=== PATIENT | female | born 1985 | race Caucasian/White ===

== ENCOUNTER 2016-03-24 16:41 | Emergency (ER) | payer SELFPAY ==
--- NOTE | 2016-03-24 17:24 | ED CLINICAL REPORT ---
Clinical Report - Physicians/Mid Levels [facility] [address] [place] [address] 03/24/2016 16:43 Patient: TERRA DIAL Time Seen: 17:05; initial patient contact, initial documentation, patient care assumed. Arrived- By private vehicle. Historian- patient. HISTORY OF PRESENT ILLNESS Chief Complaint: DENTAL PAIN. This started today and is still present. Pain described as severe. No sore throat, mouth sores, nasal discharge or congestion or ear pain. She has had severe toothache involving multiple teeth (right lower molar, left lower molar). She has had swelling of the jaw and face and jaw pain. (teeth issues for years, molars were capped, caps fell out long time ago as a child, never went back to dentist, teeth have been slowly breaking, now wisdom coming thru, and wisdom tooth on bottom L is pushing into the other tooth, gum is swollen and painful, took motrin which helped). Similar symptoms previously: Chronically. Recent medical care: Not recently seen/assessed. REVIEW OF SYSTEMS No fever or difficulty breathing. All systems otherwise negative, except as recorded above. PAST HISTORY Negative. SOCIAL HISTORY Former smoker. Occasional alcohol use. No drug use. No recent travel. Is a local resident. FAMILY HISTORY Negative. ADDITIONAL NOTES The nursing notes have been reviewed with agreement regarding the chief complaint, HPI, ROS, PMH and patient medications and allergies. PHYSICAL EXAM Vital Signs: 03/24/2016 16:50 BP: 136/83. HR: 61. RR: 16. O2 saturation: 100%. Temp: 99.1 F. Pain level now: 7/10. Have been reviewed as normal and appear to be correct. Appearance: Alert. No acute distress. Head: Normal external inspection. Eyes: Pupils equal, round and reactive to light. Conjunctivae and eyelids normal. ENT: Moderate, extensive dental decay with gingival swelling (upper right second molar and third molar, upper left second molar and third molar, lower right second premolar, lower left second premolar, lower right first molar, second molar and third molar, lower left first molar, second molar and third molar) (almost every molar with decay and broken, L lower wisdom tooth gum swelling and tenderness). No gingival tenderness, induration or fluctuance. Dental tenderness. Ears normal. Nose normal. Pharynx normal. Lips normal. Gums normal. No trismus present. Uvula midline. No trismus. Neck: Normal inspection. Trachea midline. No adenopathy. Thyroid normal. Neck supple. Respiratory: No respiratory distress. Skin: Normal skin color. No rash. Normal skin turgor. Extremities: Extremities exhibit normal ROM. Extremities nontender. Neuro: Oriented X 3. No motor deficit. No sensory deficit. PROGRESS AND PROCEDURES Patient counseled in person regarding the patient's stable condition and diagnosis. 17:24. Differential Diagnosis: Other possible considerations: dental abscess, caries, pain, ludwigs angina. Above considerations are based on history and physical exam. Differential diagnosis was discussed with patient. Disposition: Discharged home in good and unchanged condition (17:24). Condition: good and stable. CLINICAL IMPRESSION Dental caries (extensive decay) INSTRUCTIONS Do not work today, tomorrow. Warnings: GENERAL WARNINGS: Return or contact your physician immediately if your condition worsens or changes unexpectedly, if not improving as expected, or if other problems arise. Specifically return if problem worsens. Prescription Medications: Zofran 4 mg: Take 1 orally every six hours as needed for nausea/vomiting. Dispense ten (10). No refills. Substitution is permissible. Penicillin V 500mg: take 1 tab orally every 6 hours for 10 days. Dispense forty (40). No refill [place] 5 mg / 325 mg tablets: take 1 to 2 orally every 6 hours as needed for pain. Dispense fifteen (15). No refills. Substitution is permissible. Follow-up: Follow up with your doctor. Follow up with a dentist in about three days even if well. Call for an appointment. Summary of care provided to patient. Understanding of the discharge instructions verbalized by patient. (Electronically signed by Citlaly Bell A.R.N.P. 03/24/2016 17:57)
--- NOTE | 2016-03-24 17:24 | ED NURSING NOTES ---
Clinical Report - Nurses [facility] [address] [place] [address] 03/24/2016 16:43 Patient: TERRA DIAL TRIAGE Triage time 1650. Acuity: LEVEL 5. Chief Complaint: MOUTH SORE, LEFT LOWER TOOTHACHE and CHIPPED TOOTH, JAW PAIN and SWELLING OF JAW / FACE and (also c/o left ear pain). --17:01 Luz Marina Banegas R.N. 16:50 03/24/16. BP: 136/83. HR: 61. RR: 16. O2 saturation: 100%. Temp: 99.1 F. Pain level now: 08/26. --17:01 Luz Marina Banegas R.N. Weight: 58.9 kg stated. Height/Length: 61 inches Per Patient. BMI: 24.5. --17:01 Luz Marina Banegas R.N. Medications Motrin 400mg at 1300. --16:58 Luz Marina Banegas R.N. None. --16:58 Luz Marina Banegas R.N. Allergies No Known Drug Allergy. --16:58 Luz Marina Banegas R.N. History Arrived by private vehicle. Historian: patient. Unaccompanied. No primary care physician. This started today. PAST MEDICAL HX: Negative. Immunizations: status is unknown. Last normal menstrual period- 03/03. SURGERY HX: No history of previous surgery. SOCIAL HX: Former smoker (quit 1 month ago , was was a 1/2 ppd smoker for 2-3 years). Occasional alcohol use. No drug use. --17:01 Luz Marina Banegas R.N. Interventions ID band on patient. To treatment room. --17:01 Luz Marina Banegas R.N. PHYSICAL ASSESSMENT 16:50. Ambulatory to room. GENERAL / NEURO / PSYCH: Alert. Oriented X 4. Appears in pain. HEENT: Dental tenderness. Dental decay. RESPIRATORY: Respirations not labored. CVS: Capillary refill less than 2 seconds. SKIN: Skin is warm and dry. --17:02 Luz Marina Banegas R.N. NURSING PROGRESS NOTES 16:50. Head of bed elevated. Reassurance given. Patient identifiers checked. Call light placed in reach. Bed placed in lowest position. Patient ready for evaluation- chart flagged. --17:01 Luz Marina Banegas R.N. DISPOSITION / DISCHARGE 17:20. Condition at departure: stable. No learning barriers present. Discharge instructions provided and reviewed with the patient. Reviewed medication(s) (zofran, vicodin, pencillin VK). Reviewed referrals (dental referral sheets). Patient verbalized understanding. Written instructions provided in [place]. The patient was discharged home and unaccompanied at time of discharge. She left the Emergency Department ambulatory and via private vehicle. Patient driving. --18:12 Luz Marina Banegas R.N. 17:20 03/24/16. BP: deferred. HR: deferred. RR: deferred. O2 saturation: deferred. Temp: deferred. Pain level now: 08/26. --18:12 Luz Marina Banegas R.N. Locked/Released at 03/24/2016 18:12 by Luz Marina Banegas R.N.
--- NOTE | 2016-03-24 17:24 | ED NURSING NOTES ---
Clinical Report - Nurses [facility] [address] [place] [address] 03/24/2016 16:43 Patient: TERRA DIAL TRIAGE Triage time 1650. Acuity: LEVEL 5. Chief Complaint: MOUTH SORE, LEFT LOWER TOOTHACHE and CHIPPED TOOTH, JAW PAIN and SWELLING OF JAW / FACE and (also c/o left ear pain). --17:01 Luz Marina Banegas R.N. 16:50 03/24/16. BP: 136/83. HR: 61. RR: 16. O2 saturation: 100%. Temp: 99.1 F. Pain level now: 08/26. --17:01 Luz Marina Banegas R.N. Weight: 58.9 kg stated. Height/Length: 61 inches Per Patient. BMI: 24.5. --17:01 Luz Marina Banegas R.N. Medications Motrin 400mg at 1300. --16:58 Luz Marina Banegas R.N. None. --16:58 Luz Marina Banegas R.N. Allergies No Known Drug Allergy. --16:58 Luz Marina Banegas R.N. History Arrived by private vehicle. Historian: patient. Unaccompanied. No primary care physician. This started today. PAST MEDICAL HX: Negative. Immunizations: status is unknown. Last normal menstrual period- 03/03. SURGERY HX: No history of previous surgery. SOCIAL HX: Former smoker (quit 1 month ago , was was a 1/2 ppd smoker for 2-3 years). Occasional alcohol use. No drug use. --17:01 Luz Marina Banegas R.N. Interventions ID band on patient. To treatment room. --17:01 Luz Marina Banegas R.N. PHYSICAL ASSESSMENT 16:50. Ambulatory to room. GENERAL / NEURO / PSYCH: Alert. Oriented X 4. Appears in pain. HEENT: Dental tenderness. Dental decay. RESPIRATORY: Respirations not labored. CVS: Capillary refill less than 2 seconds. SKIN: Skin is warm and dry. --17:02 Luz Marina Banegas R.N. NURSING PROGRESS NOTES 16:50. Head of bed elevated. Reassurance given. Patient identifiers checked. Call light placed in reach. Bed placed in lowest position. Patient ready for evaluation- chart flagged. --17:01 Luz Marina Banegas R.N. DISPOSITION / DISCHARGE 17:20. Condition at departure: stable. No learning barriers present. Discharge instructions provided and reviewed with the patient. Reviewed medication(s) (zofran, vicodin, pencillin VK). Reviewed referrals (dental referral sheets). Patient verbalized understanding. Written instructions provided in Hebrew. The patient was discharged home and unaccompanied at time of discharge. She left the Emergency Department ambulatory and via private vehicle. Patient driving. --18:12 Luz Marina Banegas R.N. 17:20 03/24/16. BP: deferred. HR: deferred. RR: deferred. O2 saturation: deferred. Temp: deferred. Pain level now: 08/26. --18:12 Luz Marina Banegas R.N. Locked/Released at 03/24/2016 18:12 by Luz Marina Banegas R.N.
--- NOTE | 2016-03-24 18:12 | ED DISCHARGE INSTRUCTIONS ---
Patient: TERRA DIAL General Instructions [facility] VisitID: [id number] [address] [place] [address] 30y, F Registration Date/Time: 03/24/2016 Dental caries (extensive decay) INSTRUCTIONS Do not work today, tomorrow. Warnings: GENERAL WARNINGS: Return or contact your physician immediately if your condition worsens or changes unexpectedly, if not improving as expected, or if other problems arise. Specifically return if problem worsens. Prescription Medications: Zofran 4 mg: Take 1 orally every six hours as needed for nausea/vomiting. Dispense ten (10). No refills. Substitution is permissible. Penicillin V 500mg: take 1 tab orally every 6 hours for 10 days. Dispense forty (40). No refill [place] 5 mg / 325 mg tablets: take 1 to 2 orally every 6 hours as needed for pain. Dispense fifteen (15). No refills. Substitution is permissible. Follow-up: Follow up with your doctor. Follow up with a dentist in about three days even if well. Call for an appointment. Summary of care provided to patient. Understanding of the discharge instructions verbalized by patient. ADDITIONAL INFORMATION Dental Cavity A dental cavity is a pit or crater in the enamel surface of the tooth. This exposes the sensitive inner layer of the tooth and causes pain. If untreated, the cavity will get bigger and may cause an infection or abscess in the root of the tooth. An infection in the tooth is a much more serious problem and may require a root canal or removal of the entire tooth. The tooth pain may be made worse by drinking hot or cold fluids. It may spread from the tooth to the ear or jaw on the same side. Home Care: Avoid hot and cold foods, and liquids since your tooth may be sensitive to temperature changes. If your tooth is chipped or cracked, or if there is a large open cavity, apply OIL OF CLOVES (available bukf-jsq-eldhzvi in drug stores) directly to the tooth to reduce pain. Some pharmacies carry an zapp-cdm-gkxzonb "toothache kit." This contains oil of cloves and a paste, which can be applied over the exposed tooth to decrease sensitivity. An ice pack on your jaw over the sore area may help to reduce pain. You may use acetaminophen (Tylenol) or ibuprofen (Motrin, Advil) to control pain, unless another pain medicine was prescribed. [ NOTE: If you have liver disease or ever had a stomach ulcer, talk with your doctor before using these medicines.] If you have signs of an infection, an antibiotic will be given. Take it as directed. Follow-Up with your dentist as directed. Although your pain may go away with the treatment given, only a dentist can fully evaluate and treat this problem to prevent further tooth damage. Get Prompt Medical Attention if any of the following occur: Redness or swelling of the face Pain worsens or spreads to the neck Fever over 100.5 F (38C) Unusual drowsiness; headache or stiff neck; weakness or fainting Pus drains from the tooth or gum Difficulty swallowing or breathing Dental Abscess A dental abscess is an infection of the tooth socket. It often starts with a crack or cavity in the tooth. A pocket of pus forms between the tooth and the bone. The infection causes pain and swelling of the gum, cheek or jaw. The pain is often made worse by drinking hot or cold fluids, or biting on hard foods. Pain may be felt in the facial sinus or in the ear. A severe infection can interfere with swallowing and breathing. In the emergency department or clinic, you will be started on an antibiotic. However, final treatment requires drainage of the pus. This can be done by removing the tooth or performing a root canal. A root canal is done by an oral surgeon and involves drilling an opening in the tooth to drain the pus. After the infection has healed, a crown is placed over the tooth. Home care The following guidelines will help you care for your abscess at home: Avoid hot and cold foods and liquids since your tooth may be sensitive to temperature changes. If your tooth is chipped or cracked, or if there is a large open cavity, applyoil of cloves(available mabb-ywh-naxhmnu in drug stores) directly to the tooth to reduce pain. Some pharmacies carry an hrvo-zuu-twvdnvt "toothache kit". This contains oil of cloves and a paste, which can be applied over the exposed tooth to decrease sensitivity. Apply an ice pack (ice cubes in a plastic bag, wrapped in a towel) over the injured area for 20 minutes every 12 hours the first day for pain relief. Continue this 34 times a day until the pain and swelling goes away. You may use acetaminophen or ibuprofen to control pain, unless another medicine was prescribed. If you have chronic liver or kidney disease or ever had a stomach ulcer or GI bleeding, talk with your doctor before using these medicines. An antibiotic will be prescribed. Take it as directed until completed, even if you are feeling better sooner. Follow-up care Follow up as directed with a dentist or oral surgeon. Even though your pain may improve with the treatment given today, only a dentist or oral surgeon can provide full treatment for this problem. When to seek medical care Get prompt medical attention or contact your doctor if any of the following occur: Your face or eyelid becomes swollen or red Pain worsens or spreads to the neck Fever over 100.4F (38.0C) Unusual drowsiness; headache or stiff neck; weakness, or fainting Pus drains from the gum or tooth Difficulty talking, swallowing or breathing Unable to open your mouth wide Dental Pain A crack or cavity in the tooth, which exposes the sensitive inner area of the tooth can cause tooth pain. An infection in the gum or the root of the tooth can cause pain and swelling. The pain is often made worse by drinking hot or cold fluids, or biting on hard foods. Pain may spread from the tooth to the ear or jaw on the same side. Home Care: Avoid hot and cold foods and liquids since your tooth may be sensitive to temperature changes. If your tooth is chipped or cracked, or if there is a large open cavity, apply OIL OF CLOVES (available xlhj-xot-jjswfpy in drug stores) directly to the tooth to reduce pain. Some pharmacies carry an mnld-kia-payyilk "toothache kit." This contains a paste, which can be applied over the exposed tooth to decrease sensitivity. A cold pack on your jaw over the sore area may help reduce pain. You may use acetaminophen (Tylenol) or ibuprofen (Motrin, Advil) to control pain, unless another medicine was prescribed. [ NOTE: If you have chronic liver or kidney disease or ever had a stomach ulcer or GI bleeding, talk with your doctor before using these medicines.] If you have signs of an infection, an antibiotic will be given. Take it as directed. Follow-Up as directed with a dentist. Your pain may go away with the treatment given. However, only a dentist can fully evaluate and treat the cause and prevent the pain from coming back again. TOOTHACHE IS A SIGN OF DISEASE IN YOUR TOOTH AND SHOULD BE EXAMINED AND TREATED BY A DENTIST. Get Prompt Medical Attention if any of the following occur: Your face becomes swollen or red Pain worsens or spreads to the neck Fever over 100.4 F (38.0 C) Unusual drowsiness; headache or stiff neck; weakness or fainting Pus drains from the tooth Difficulty swallowing or breathing Ondansetron Oral disintegrating tablet What is this medicine? ONDANSETRON (on KIKA se tita) is used to treat nausea and vomiting caused by chemotherapy. It is also used to prevent or treat nausea and vomiting after surgery. How should I use this medicine? These tablets are made to dissolve in the mouth. Do not try to push the tablet through the foil backing. With dry hands, peel away the foil backing and gently remove the tablet. Place the tablet in the mouth and allow it to dissolve, then swallow. While you may take these tablets with water, it is not necessary to do so. Talk to your weigh box tender regarding the use of this medicine in children. Special care may be needed. What side effects may I notice from receiving this medicine? Side effects that you should report to your doctor or health home care chaplain as soon as possible: allergic reactions like skin rash, itching or hives, swelling of the face, lips, or tongue breathing problems dizziness fast or irregular heartbeat feeling faint or lightheaded, falls fever and chills swelling of the hands and feet tightness in the chest Side effects that usually do not require medical attention (report to your doctor or health home care chaplain if they continue or are bothersome): constipation or diarrhea headache What may interact with this medicine? Do not take this medicine with any of the following medications: -apomorphine -cisapride -dofetilide -dronedarone -pimozide -thioridazine -ziprasidone This medicine may also interact with the following medications: -carbamazepine -phenytoin -rifampicin -tramadol -other medicines that prolong the QT interval (cause an abnormal heart rhythm) What if I miss a dose? If you miss a dose, take it as soon as you can. If it is almost time for your next dose, take only that dose. Do not take double or extra doses. Where should I keep my medicine? Keep out of the reach of children. Store between 2 and 30 degrees C (36 and 86 degrees F). Throw away any unused medicine after the expiration date. What should I tell my health care provider before I take this medicine? They need to know if you have any of these conditions: heart disease history of irregular heartbeat liver disease low levels of magnesium or potassium in the blood an unusual or allergic reaction to ondansetron, granisetron, other medicines, foods, dyes, or preservatives or trying to get breast-feeding What should I watch for while using this medicine? Check with your doctor or health home care chaplain as soon as you can if you have any sign of an allergic reaction. Penicillin V Potassium Oral tablet What is this medicine? PENICILLIN V (pen i SILL in V) is a penicillin antibiotic. It is used to treat certain kinds of bacterial infections. It will not work for colds, flu, or other viral infections. How should I use this medicine? Take this medicine by mouth with a full glass of water. Follow the directions on the prescription label. Take your medicine at regular intervals. Do not take your medicine more often than directed. Take all of your medicine as directed even if you think your are better. Do not skip doses or stop your medicine early. Talk to your weigh box tender regarding the use of this medicine in children. While this drug may be prescribed for selected conditions, precautions do apply. What side effects may I notice from receiving this medicine? Side effects that you should report to your doctor or health home care chaplain as soon as possible: allergic reactions like skin rash or hives, swelling of the face, lips, or tongue breathing problems fever new symptoms of infection redness, blistering, peeling or loosening of the skin, including inside the mouth unusually weak or tired Side effects that usually do not require medical attention (report to your doctor or health home care chaplain if they continue or are bothersome): diarrhea headache nausea, vomiting sore mouth or tongue stomach upset What may interact with this medicine? control pills methotrexate other antibiotics probenecid some vaccines What if I miss a dose? If you miss a dose, take it as soon as you can. If it is almost time for your next dose, take only that dose. Do not take double or extra doses. Where should I keep my medicine? Keep out of the reach of children. Store at room temperature between 15 and 30 degrees C (59 and 86 degrees F). Keep container tightly closed. Throw away any unused medicine after the expiration date. What should I tell my health care provider before I take this medicine? They need to know if you have any of these conditions: asthma bowel disease, like colitis eczema kidney disease an unusual or allergic reaction to penicillin, cephalosporins, other antibiotics or medicines, foods, tartrazine or other dyes, or preservatives or trying to get breast-feeding What should I watch for while using this medicine? Tell your doctor or health home care chaplain if your symptoms do not improve. Do not treat diarrhea with over the counter products. Contact your doctor if you have diarrhea that lasts more than 2 days or if it is severe and watery. If you have diabetes, you may get a false-positive result for sugar in your urine. Check with your doctor or health home care chaplain. control pills may not work properly while you are taking this medicine. Talk to your doctor about using an extra method of control. Hydrocodone Bitartrate, Acetaminophen Oral tablet What is this medicine? ACETAMINOPHEN; HYDROCODONE (a set a VALDO aurea fen; didier droe KOE done) is a pain reliever. It is used to treat mild to moderate pain. How should I use this medicine? Take this medicine by mouth. Swallow it with a full glass of water. Follow the directions on the prescription label. If the medicine upsets your stomach, take the medicine with food or milk. Do not take more than you are told to take. Talk to your weigh box tender regarding the use of this medicine in children. This medicine is not approved for use in children. What side effects may I notice from receiving this medicine? Side effects that you should report to your doctor or health home care chaplain as soon as possible: allergic reactions like skin rash, itching or hives, swelling of the face, lips, or tongue breathing problems confusion feeling faint or lightheaded, falls stomach pain yellowing of the eyes or skin Side effects that usually do not require medical attention (report to your doctor or health home care chaplain if they continue or are bothersome): nausea, vomiting stomach upset What may interact with this medicine? alcohol antihistamines isoniazid medicines for depression, anxiety, or psychotic disturbances medicines for sleep muscle relaxants naltrexone narcotic medicines (opiates) for pain phenobarbital ritonavir tramadol What if I miss a dose? If you miss a dose, take it as soon as you can. If it is almost time for your next dose, take only that dose. Do not take double or extra doses. Where should I keep my medicine? Keep out of the reach of children. This medicine can be abused. Keep your medicine in a safe place to protect it from theft. Do not share this medicine with anyone. Selling or giving away this medicine is dangerous and against the law. Store at room temperature between 15 and 30 degrees C (59 and 86 degrees F). Protect from light. Keep container tightly closed. Throw away any unused medicine after the expiration date. Discard unused medicine and used packaging carefully. Pets and children can be harmed if they find used or lost packages. What should I tell my health care provider before I take this medicine? They need to know if you have any of these conditions: brain tumor Crohn's disease, inflammatory bowel disease, or ulcerative colitis drink more than 3 alcohol-containing drinks per day drug abuse or addiction head injury heart or circulation problems kidney disease or problems going to the bathroom liver disease lung disease, asthma, or breathing problems an unusual or allergic reaction to acetaminophen, hydrocodone, other opioid analgesics, other medicines, foods, dyes, or preservatives or trying to get breast-feeding What should I watch for while using this medicine? Tell your doctor or health home care chaplain if your pain does not go away, if it gets worse, or if you have new or a different type of pain. You may develop tolerance to the medicine. Tolerance means that you will need a higher dose of the medicine for pain relief. Tolerance is normal and is expected if you take the medicine for a long time. Do not suddenly stop taking your medicine because you may develop a severe reaction. Your body becomes used to the medicine. This does NOT mean you are addicted. Addiction is a behavior related to getting and using a drug for a non-medical reason. If you have pain, you have a medical reason to take pain medicine. Your doctor will tell you how much medicine to take. If your doctor wants you to stop the medicine, the dose will be slowly lowered over time to avoid any side effects. You may get drowsy or dizzy when you first start taking the medicine or change doses. Do not drive, use machinery, or do anything that may be dangerous until you know how the medicine affects you. Stand or sit up slowly. There are different types of narcotic medicines (opiates) for pain. If you take more than one type at the same time, you may have more side effects. Give your health care provider a list of all medicines you use. Your doctor will tell you how much medicine to take. Do not take more medicine than directed. Call emergency for help if you have problems breathing. The medicine will cause constipation. Try to have a bowel movement at least every 2 to 3 days. If you do not have a bowel movement for 3 days, call your doctor or health home care chaplain. Too much acetaminophen can be very dangerous. Do not take Tylenol (acetaminophen) or medicines that contain acetaminophen with this medicine. Many non-prescription medicines contain acetaminophen. Always read the labels carefully. You have been given the following additional information: Dental Cavity Tooth Abscess Dental Pain Ondansetron Oral disintegrating tablet Penicillin V Potassium Oral tablet Hydrocodone Bitartrate, Acetaminophen Oral tablet Do not work today, tomorrow. (Electronically signed by Citlaly Bell A.R.N.P. 03/24/2016 17:57)
--- NOTE | 2016-03-24 18:12 | ED MED RECONCILIATION SUMMARY ---
Patient: TERRA DIAL Medication Reconciliation Report [facility] VisitID: [id number] [address] [place] [address] 30y, F Registration Date/Time: 03/24/2016 Weight: 58.9 kg Height/Length: 61 in. BMI: 24.5 ALLERGIES: No Known Drug Allergy The patient's Home Medications are listed below: THE FOLLOWING MEDICATIONS NEED TO BE RECONCILED: Motrin 400mg at 1300 The source(s) of the original Home Medication information: Not obtained. The following Medications were given to the patient in the Emergency Department: None. The following Medications were prescribed to the patient: Zofran 4 mg: Take 1 orally every six hours as needed for nausea/vomiting. Dispense ten (10). No refills. Substitution is permissible. -- Citlaly Bell, A.R.N.P. Penicillin V 500mg: take 1 tab orally every 6 hours for 10 days. Dispense forty (40). No refill -- Citlaly Bell A.R.N.P. [place] 5 mg / 325 mg tablets: take 1 to 2 orally every 6 hours as needed for pain. Dispense fifteen (15). No refills. Substitution is permissible. -- Citlaly Bell A.R.N.P.
--- NOTE | 2016-03-24 18:12 | ED MAR SUMMARY ---
..... Medication Administration Record [facility] [address] [place], [place] [id number] Patient: TERRA DIAL Visit ID: [id number] 30y, F Weight: 58.9 kg Height/Length: 61 in BMI: 24.5 ALLERGIES: No Known Drug Allergy
--- NOTE | 2016-03-24 18:12 | ED DISCHARGE INSTRUCTIONS ---
Patient: TERRA DIAL General Instructions [facility] VisitID: [id number] [address] [place] [address] 30y, F Registration Date/Time: 03/24/2016 Dental caries (extensive decay) INSTRUCTIONS Do not work today, tomorrow. Warnings: GENERAL WARNINGS: Return or contact your physician immediately if your condition worsens or changes unexpectedly, if not improving as expected, or if other problems arise. Specifically return if problem worsens. Prescription Medications: Zofran 4 mg: Take 1 orally every six hours as needed for nausea/vomiting. Dispense ten (10). No refills. Substitution is permissible. Penicillin V 500mg: take 1 tab orally every 6 hours for 10 days. Dispense forty (40). No refill [place] 5 mg / 325 mg tablets: take 1 to 2 orally every 6 hours as needed for pain. Dispense fifteen (15). No refills. Substitution is permissible. Follow-up: Follow up with your doctor. Follow up with a dentist in about three days even if well. Call for an appointment. Summary of care provided to patient. Understanding of the discharge instructions verbalized by patient. ADDITIONAL INFORMATION Dental Cavity A dental cavity is a pit or crater in the enamel surface of the tooth. This exposes the sensitive inner layer of the tooth and causes pain. If untreated, the cavity will get bigger and may cause an infection or abscess in the root of the tooth. An infection in the tooth is a much more serious problem and may require a root canal or removal of the entire tooth. The tooth pain may be made worse by drinking hot or cold fluids. It may spread from the tooth to the ear or jaw on the same side. Home Care: Avoid hot and cold foods, and liquids since your tooth may be sensitive to temperature changes. If your tooth is chipped or cracked, or if there is a large open cavity, apply OIL OF CLOVES (available path-bnh-uzejaoc in drug stores) directly to the tooth to reduce pain. Some pharmacies carry an rbjj-vun-yhgyxca "toothache kit." This contains oil of cloves and a paste, which can be applied over the exposed tooth to decrease sensitivity. An ice pack on your jaw over the sore area may help to reduce pain. You may use acetaminophen (Tylenol) or ibuprofen (Motrin, Advil) to control pain, unless another pain medicine was prescribed. [ NOTE: If you have liver disease or ever had a stomach ulcer, talk with your doctor before using these medicines.] If you have signs of an infection, an antibiotic will be given. Take it as directed. Follow-Up with your dentist as directed. Although your pain may go away with the treatment given, only a dentist can fully evaluate and treat this problem to prevent further tooth damage. Get Prompt Medical Attention if any of the following occur: Redness or swelling of the face Pain worsens or spreads to the neck Fever over 100.5 F (38C) Unusual drowsiness; headache or stiff neck; weakness or fainting Pus drains from the tooth or gum Difficulty swallowing or breathing Dental Abscess A dental abscess is an infection of the tooth socket. It often starts with a crack or cavity in the tooth. A pocket of pus forms between the tooth and the bone. The infection causes pain and swelling of the gum, cheek or jaw. The pain is often made worse by drinking hot or cold fluids, or biting on hard foods. Pain may be felt in the facial sinus or in the ear. A severe infection can interfere with swallowing and breathing. In the emergency department or clinic, you will be started on an antibiotic. However, final treatment requires drainage of the pus. This can be done by removing the tooth or performing a root canal. A root canal is done by an oral surgeon and involves drilling an opening in the tooth to drain the pus. After the infection has healed, a crown is placed over the tooth. Home care The following guidelines will help you care for your abscess at home: Avoid hot and cold foods and liquids since your tooth may be sensitive to temperature changes. If your tooth is chipped or cracked, or if there is a large open cavity, applyoil of cloves(available akud-njx-rnrqxzg in drug stores) directly to the tooth to reduce pain. Some pharmacies carry an yzvc-doh-ugulxqi "toothache kit". This contains oil of cloves and a paste, which can be applied over the exposed tooth to decrease sensitivity. Apply an ice pack (ice cubes in a plastic bag, wrapped in a towel) over the injured area for 20 minutes every 12 hours the first day for pain relief. Continue this 34 times a day until the pain and swelling goes away. You may use acetaminophen or ibuprofen to control pain, unless another medicine was prescribed. If you have chronic liver or kidney disease or ever had a stomach ulcer or GI bleeding, talk with your doctor before using these medicines. An antibiotic will be prescribed. Take it as directed until completed, even if you are feeling better sooner. Follow-up care Follow up as directed with a dentist or oral surgeon. Even though your pain may improve with the treatment given today, only a dentist or oral surgeon can provide full treatment for this problem. When to seek medical care Get prompt medical attention or contact your doctor if any of the following occur: Your face or eyelid becomes swollen or red Pain worsens or spreads to the neck Fever over 100.4F (38.0C) Unusual drowsiness; headache or stiff neck; weakness, or fainting Pus drains from the gum or tooth Difficulty talking, swallowing or breathing Unable to open your mouth wide Dental Pain A crack or cavity in the tooth, which exposes the sensitive inner area of the tooth can cause tooth pain. An infection in the gum or the root of the tooth can cause pain and swelling. The pain is often made worse by drinking hot or cold fluids, or biting on hard foods. Pain may spread from the tooth to the ear or jaw on the same side. Home Care: Avoid hot and cold foods and liquids since your tooth may be sensitive to temperature changes. If your tooth is chipped or cracked, or if there is a large open cavity, apply OIL OF CLOVES (available lsqs-clo-vlcrkbg in drug stores) directly to the tooth to reduce pain. Some pharmacies carry an yjnl-xmo-tlhcrkg "toothache kit." This contains a paste, which can be applied over the exposed tooth to decrease sensitivity. A cold pack on your jaw over the sore area may help reduce pain. You may use acetaminophen (Tylenol) or ibuprofen (Motrin, Advil) to control pain, unless another medicine was prescribed. [ NOTE: If you have chronic liver or kidney disease or ever had a stomach ulcer or GI bleeding, talk with your doctor before using these medicines.] If you have signs of an infection, an antibiotic will be given. Take it as directed. Follow-Up as directed with a dentist. Your pain may go away with the treatment given. However, only a dentist can fully evaluate and treat the cause and prevent the pain from coming back again. TOOTHACHE IS A SIGN OF DISEASE IN YOUR TOOTH AND SHOULD BE EXAMINED AND TREATED BY A DENTIST. Get Prompt Medical Attention if any of the following occur: Your face becomes swollen or red Pain worsens or spreads to the neck Fever over 100.4 F (38.0 C) Unusual drowsiness; headache or stiff neck; weakness or fainting Pus drains from the tooth Difficulty swallowing or breathing Ondansetron Oral disintegrating tablet What is this medicine? ONDANSETRON (on KIKA se tita) is used to treat nausea and vomiting caused by chemotherapy. It is also used to prevent or treat nausea and vomiting after surgery. How should I use this medicine? These tablets are made to dissolve in the mouth. Do not try to push the tablet through the foil backing. With dry hands, peel away the foil backing and gently remove the tablet. Place the tablet in the mouth and allow it to dissolve, then swallow. While you may take these tablets with water, it is not necessary to do so. Talk to your interventional tech regarding the use of this medicine in children. Special care may be needed. What side effects may I notice from receiving this medicine? Side effects that you should report to your doctor or health rn medicare as soon as possible: allergic reactions like skin rash, itching or hives, swelling of the face, lips, or tongue breathing problems dizziness fast or irregular heartbeat feeling faint or lightheaded, falls fever and chills swelling of the hands and feet tightness in the chest Side effects that usually do not require medical attention (report to your doctor or health rn medicare if they continue or are bothersome): constipation or diarrhea headache What may interact with this medicine? Do not take this medicine with any of the following medications: -apomorphine -cisapride -dofetilide -dronedarone -pimozide -thioridazine -ziprasidone This medicine may also interact with the following medications: -carbamazepine -phenytoin -rifampicin -tramadol -other medicines that prolong the QT interval (cause an abnormal heart rhythm) What if I miss a dose? If you miss a dose, take it as soon as you can. If it is almost time for your next dose, take only that dose. Do not take double or extra doses. Where should I keep my medicine? Keep out of the reach of children. Store between 2 and 30 degrees C (36 and 86 degrees F). Throw away any unused medicine after the expiration date. What should I tell my health care provider before I take this medicine? They need to know if you have any of these conditions: heart disease history of irregular heartbeat liver disease low levels of magnesium or potassium in the blood an unusual or allergic reaction to ondansetron, granisetron, other medicines, foods, dyes, or preservatives or trying to get breast-feeding What should I watch for while using this medicine? Check with your doctor or health rn medicare as soon as you can if you have any sign of an allergic reaction. Penicillin V Potassium Oral tablet What is this medicine? PENICILLIN V (pen i SILL in V) is a penicillin antibiotic. It is used to treat certain kinds of bacterial infections. It will not work for colds, flu, or other viral infections. How should I use this medicine? Take this medicine by mouth with a full glass of water. Follow the directions on the prescription label. Take your medicine at regular intervals. Do not take your medicine more often than directed. Take all of your medicine as directed even if you think your are better. Do not skip doses or stop your medicine early. Talk to your interventional tech regarding the use of this medicine in children. While this drug may be prescribed for selected conditions, precautions do apply. What side effects may I notice from receiving this medicine? Side effects that you should report to your doctor or health rn medicare as soon as possible: allergic reactions like skin rash or hives, swelling of the face, lips, or tongue breathing problems fever new symptoms of infection redness, blistering, peeling or loosening of the skin, including inside the mouth unusually weak or tired Side effects that usually do not require medical attention (report to your doctor or health rn medicare if they continue or are bothersome): diarrhea headache nausea, vomiting sore mouth or tongue stomach upset What may interact with this medicine? control pills methotrexate other antibiotics probenecid some vaccines What if I miss a dose? If you miss a dose, take it as soon as you can. If it is almost time for your next dose, take only that dose. Do not take double or extra doses. Where should I keep my medicine? Keep out of the reach of children. Store at room temperature between 15 and 30 degrees C (59 and 86 degrees F). Keep container tightly closed. Throw away any unused medicine after the expiration date. What should I tell my health care provider before I take this medicine? They need to know if you have any of these conditions: asthma bowel disease, like colitis eczema kidney disease an unusual or allergic reaction to penicillin, cephalosporins, other antibiotics or medicines, foods, tartrazine or other dyes, or preservatives or trying to get breast-feeding What should I watch for while using this medicine? Tell your doctor or health rn medicare if your symptoms do not improve. Do not treat diarrhea with over the counter products. Contact your doctor if you have diarrhea that lasts more than 2 days or if it is severe and watery. If you have diabetes, you may get a false-positive result for sugar in your urine. Check with your doctor or health rn medicare. control pills may not work properly while you are taking this medicine. Talk to your doctor about using an extra method of control. Hydrocodone Bitartrate, Acetaminophen Oral tablet What is this medicine? ACETAMINOPHEN; HYDROCODONE (a set a VALDO aurea fen; didier droe KOE done) is a pain reliever. It is used to treat mild to moderate pain. How should I use this medicine? Take this medicine by mouth. Swallow it with a full glass of water. Follow the directions on the prescription label. If the medicine upsets your stomach, take the medicine with food or milk. Do not take more than you are told to take. Talk to your interventional tech regarding the use of this medicine in children. This medicine is not approved for use in children. What side effects may I notice from receiving this medicine? Side effects that you should report to your doctor or health rn medicare as soon as possible: allergic reactions like skin rash, itching or hives, swelling of the face, lips, or tongue breathing problems confusion feeling faint or lightheaded, falls stomach pain yellowing of the eyes or skin Side effects that usually do not require medical attention (report to your doctor or health rn medicare if they continue or are bothersome): nausea, vomiting stomach upset What may interact with this medicine? alcohol antihistamines isoniazid medicines for depression, anxiety, or psychotic disturbances medicines for sleep muscle relaxants naltrexone narcotic medicines (opiates) for pain phenobarbital ritonavir tramadol What if I miss a dose? If you miss a dose, take it as soon as you can. If it is almost time for your next dose, take only that dose. Do not take double or extra doses. Where should I keep my medicine? Keep out of the reach of children. This medicine can be abused. Keep your medicine in a safe place to protect it from theft. Do not share this medicine with anyone. Selling or giving away this medicine is dangerous and against the law. Store at room temperature between 15 and 30 degrees C (59 and 86 degrees F). Protect from light. Keep container tightly closed. Throw away any unused medicine after the expiration date. Discard unused medicine and used packaging carefully. Pets and children can be harmed if they find used or lost packages. What should I tell my health care provider before I take this medicine? They need to know if you have any of these conditions: brain tumor Crohn's disease, inflammatory bowel disease, or ulcerative colitis drink more than 3 alcohol-containing drinks per day drug abuse or addiction head injury heart or circulation problems kidney disease or problems going to the bathroom liver disease lung disease, asthma, or breathing problems an unusual or allergic reaction to acetaminophen, hydrocodone, other opioid analgesics, other medicines, foods, dyes, or preservatives or trying to get breast-feeding What should I watch for while using this medicine? Tell your doctor or health rn medicare if your pain does not go away, if it gets worse, or if you have new or a different type of pain. You may develop tolerance to the medicine. Tolerance means that you will need a higher dose of the medicine for pain relief. Tolerance is normal and is expected if you take the medicine for a long time. Do not suddenly stop taking your medicine because you may develop a severe reaction. Your body becomes used to the medicine. This does NOT mean you are addicted. Addiction is a behavior related to getting and using a drug for a non-medical reason. If you have pain, you have a medical reason to take pain medicine. Your doctor will tell you how much medicine to take. If your doctor wants you to stop the medicine, the dose will be slowly lowered over time to avoid any side effects. You may get drowsy or dizzy when you first start taking the medicine or change doses. Do not drive, use machinery, or do anything that may be dangerous until you know how the medicine affects you. Stand or sit up slowly. There are different types of narcotic medicines (opiates) for pain. If you take more than one type at the same time, you may have more side effects. Give your health care provider a list of all medicines you use. Your doctor will tell you how much medicine to take. Do not take more medicine than directed. Call emergency for help if you have problems breathing. The medicine will cause constipation. Try to have a bowel movement at least every 2 to 3 days. If you do not have a bowel movement for 3 days, call your doctor or health rn medicare. Too much acetaminophen can be very dangerous. Do not take Tylenol (acetaminophen) or medicines that contain acetaminophen with this medicine. Many non-prescription medicines contain acetaminophen. Always read the labels carefully. You have been given the following additional information: Dental Cavity Tooth Abscess Dental Pain Ondansetron Oral disintegrating tablet Penicillin V Potassium Oral tablet Hydrocodone Bitartrate, Acetaminophen Oral tablet Do not work today, tomorrow. (Electronically signed by Citlaly Bell A.R.N.P. 03/24/2016 17:57)
--- NOTE | 2016-03-24 18:12 | ED MAR SUMMARY ---
..... Medication Administration Record [facility] [address] [place], [place] [id number] Patient: TERRA DIAL Visit ID: [id number] 30y, F Weight: 58.9 kg Height/Length: 61 in BMI: 24.5 ALLERGIES: No Known Drug Allergy
--- NOTE | 2016-03-24 18:12 | ED MED RECONCILIATION SUMMARY ---
Patient: TERRA DIAL Medication Reconciliation Report [facility] VisitID: [id number] [address] [place] [address] 30y, F Registration Date/Time: 03/24/2016 Weight: 58.9 kg Height/Length: 61 in. BMI: 24.5 ALLERGIES: No Known Drug Allergy The patient's Home Medications are listed below: THE FOLLOWING MEDICATIONS NEED TO BE RECONCILED: Motrin 400mg at 1300 The source(s) of the original Home Medication information: Not obtained. The following Medications were given to the patient in the Emergency Department: None. The following Medications were prescribed to the patient: Zofran 4 mg: Take 1 orally every six hours as needed for nausea/vomiting. Dispense ten (10). No refills. Substitution is permissible. -- Citlaly Bell, A.R.N.P. Penicillin V 500mg: take 1 tab orally every 6 hours for 10 days. Dispense forty (40). No refill -- Citlaly Bell A.R.N.P. [place] 5 mg / 325 mg tablets: take 1 to 2 orally every 6 hours as needed for pain. Dispense fifteen (15). No refills. Substitution is permissible. -- Citlaly Bell A.R.N.P.
== END 2016-03-24 17:20 | disposition home or self-care (01) ==
LOC: ED SRH 16:41
DX: K02.9 Dental caries, unspecified (principal); Z87.891 Personal history of nicotine dependence

== ENCOUNTER 2016-08-20 20:10 | Emergency (ER) | payer SELFPAY ==
--- NOTE | 2016-08-20 20:43 | ED NURSING NOTES ---
Clinical Report - Nurses [facility] [address] [place] [address] 08/20/2016 20:12 Patient: TERRA DIAL TRIAGE Triage time 20:15 Aug 20 2016. Acuity: LEVEL 4. Chief Complaint: LEFT UPPER and LOWER TOOTHACHE and CHIPPED TOOTH and JAW PAIN. 20:24 08/20/16. SEPSIS SCREEN: Sepsis Screen. Negative (no infection suspected/documented). JAMES COMA SCORE: James Coma Scale: 15- eyes open spontaneously (4); best verbal response- oriented x 4 (5); best motor response- obeys commands (6). --20:25 Raisa Edwards R.N. 20:20 08/20/16. BP: 137/90 (regular adult cuff) taken on the left arm, while sitting. HR: 83. RR: 18. O2 saturation: 100% on room air. Temp: 98.4 F (oral). Pain level now: 7/10. --20:25 Raisa Edwards R.N. Weight: 55.7 kg. Height/Length: 62 inches Per Patient. BMI: 22.5. --20:21 Raisa Edwards R.N. Medications None. --20:20 Raisa Edwards R.N. Allergies Sulfa Antibiotics. --20:21 Raisa Edwards R.N. The following entry was struck by Raisa Edwards R.N., 20:21 (08/20/16) Reason - other. <<STRICKEN ENTRY-- No Known Drug Allergy. --20:20 Raisa Edwards R.N. --END STRIKE>>. History Arrived by private vehicle. Historian: patient. This started just prior to arrival. She has had a toothache and swelling of the jaw. Treatment DRIVE MAN: None. PAST MEDICAL HX: Dental caries. Immunizations: up-to-date. Last normal menstrual period was 3 weeks ago- days ago. Patient has IUD. SOCIAL HX: Smoker- current status unknown. Occasional alcohol use. No drug use. No infectious disease exposure. ABUSE ASSESSMENT: No report of abuse. SELF HARM ASSESSMENT: A self harm assessment was performed. The patient answered "no" to the question "Do you have thoughts of harming or killing yourself?" and "Have you recently had thoughts about harming or killing others?". --20:25 Raisa Edwards R.N. PROBLEMS: Dental Caries. --20:21 Raisa Edwards R.N. ADDITIONAL SURGERIES: no known surgeries. Interventions ID band on patient. To treatment room. --20:25 Raisa Edwards R.N. PHYSICAL ASSESSMENT 20:08/20/16. Ambulatory to room. GENERAL / NEURO / PSYCH: Alert. Oriented X 4. Appears in no acute distress. HEENT: Pupils equal, round and reactive to light. Pharynx within normal limits. Voice within normal limits. Mouth within normal limits upon inspection. Dental tenderness. Dental decay. Mucous membranes are pink. RESPIRATORY: Respirations not labored. CVS: Capillary refill less than 2 seconds. SKIN: Skin is warm and dry. Normal skin turgor. --20:25 aRisa Edwards R.N. NURSING PROGRESS NOTES 20:08/20/16. The plan of care for this patient has been created. Monitoring of patient in place. Head of bed elevated. Reassurance given. Two patient identifiers checked. Call light placed in reach. Side rails up x 1. Bed placed in lowest position. Brakes of bed on. Patient ready for evaluation- chart flagged and ED physician notified. --20:25 Raisa Edwards R.N. 20:08/20/2016 Lidocaine-Epinephrine (Lidocaine-Epinephrine) Injection Injectable 1 % given. Allergies verified and confirmed 5 rights. (At bedside for Dr Gregory). --20:29 Raisa Edwards R.N. 20:08/20/2016 Bupivacaine-Epinephrine (Bupivacaine-Epinephrine) Injection Injectable 0.5 % given. Allergies verified and confirmed 5 rights. (At bedside for Dr Gregory). --20:29 Raisa Edwards R.N. 20:30 08/20/2016 Motrin PO Tablets 600 mg given. Allergies verified and confirmed 5 rights. --20:30 Raisa Edwards R.N. 20:30 08/20/2016 Penicillin V Potassium PO Tablets 500 mg given. Allergies verified and confirmed 5 rights. --20:30 Raisa Edwards R.N. DISPOSITION / DISCHARGE Departure time: 2114. --22:28 Victor Hugo Dowd R.N. 21:10 08/20/16. BP: 118/83. HR: 81. RR: 16. O2 saturation: 100% on room air. Temp: 98.7 F (oral). Pain level now: 06/26. --22:32 Victor Hugo Dowd R.N. 21:15. Condition at departure: improved. No learning barriers present. Discharge instructions provided and reviewed with the patient. Reviewed medication(s) (prescription given to pt). Treatments reviewed. Reviewed referral to a dentist for followup (pt states that she has her own dentist). Patient verbalized understanding. Written instructions provided in Uzbek. The patient was discharged by the physician. She was discharged home and unaccompanied at time of discharge. She left the Emergency Department ambulatory and via private vehicle. Patient driving. --22:40 Victor Hugo Dowd R.N. Locked/Released at 08/20/2016 22:44 by Victor Hugo Dowd R.N.
--- NOTE | 2016-08-20 20:43 | ED NURSING NOTES ---
Clinical Report - Nurses [facility] [address] [place] [address] 08/20/2016 20:12 Patient: TERRA DIAL TRIAGE Triage time 20:15 Aug 20 2016. Acuity: LEVEL 4. Chief Complaint: LEFT UPPER and LOWER TOOTHACHE and CHIPPED TOOTH and JAW PAIN. 20:24 08/20/16. SEPSIS SCREEN: Sepsis Screen. Negative (no infection suspected/documented). JAMES COMA SCORE: James Coma Scale: 15- eyes open spontaneously (4); best verbal response- oriented x 4 (5); best motor response- obeys commands (6). --20:25 Raisa Edwards R.N. 20:20 08/20/16. BP: 137/90 (regular adult cuff) taken on the left arm, while sitting. HR: 83. RR: 18. O2 saturation: 100% on room air. Temp: 98.4 F (oral). Pain level now: 7/10. --20:25 Raisa Edwards R.N. Weight: 55.7 kg. Height/Length: 62 inches Per Patient. BMI: 22.5. --20:21 Raisa Edwards R.N. Medications None. --20:20 Raisa Edwards R.N. Allergies Sulfa Antibiotics. --20:21 Raisa Edwards R.N. The following entry was struck by Raisa Edwards R.N., 20:21 (08/20/16) Reason - other. <<STRICKEN ENTRY-- No Known Drug Allergy. --20:20 Raisa Edwards R.N. --END STRIKE>>. History Arrived by private vehicle. Historian: patient. This started just prior to arrival. She has had a toothache and swelling of the jaw. Treatment IMPROVEMENT SPECIALIST: None. PAST MEDICAL HX: Dental caries. Immunizations: up-to-date. Last normal menstrual period was 3 weeks ago- days ago. Patient has IUD. SOCIAL HX: Smoker- current status unknown. Occasional alcohol use. No drug use. No infectious disease exposure. ABUSE ASSESSMENT: No report of abuse. SELF HARM ASSESSMENT: A self harm assessment was performed. The patient answered "no" to the question "Do you have thoughts of harming or killing yourself?" and "Have you recently had thoughts about harming or killing others?". --20:25 Raisa Edwards R.N. PROBLEMS: Dental Caries. --20:21 Raisa Edwards R.N. ADDITIONAL SURGERIES: no known surgeries. Interventions ID band on patient. To treatment room. --20:25 Raisa Edwards R.N. PHYSICAL ASSESSMENT 20:08/20/16. Ambulatory to room. GENERAL / NEURO / PSYCH: Alert. Oriented X 4. Appears in no acute distress. HEENT: Pupils equal, round and reactive to light. Pharynx within normal limits. Voice within normal limits. Mouth within normal limits upon inspection. Dental tenderness. Dental decay. Mucous membranes are pink. RESPIRATORY: Respirations not labored. CVS: Capillary refill less than 2 seconds. SKIN: Skin is warm and dry. Normal skin turgor. --20:25 Raisa Edwards R.N. NURSING PROGRESS NOTES 20:08/20/16. The plan of care for this patient has been created. Monitoring of patient in place. Head of bed elevated. Reassurance given. Two patient identifiers checked. Call light placed in reach. Side rails up x 1. Bed placed in lowest position. Brakes of bed on. Patient ready for evaluation- chart flagged and ED physician notified. --20:25 Raisa Edwards R.N. 20:08/20/2016 Lidocaine-Epinephrine (Lidocaine-Epinephrine) Injection Injectable 1 % given. Allergies verified and confirmed 5 rights. (At bedside for Dr Gregory). --20:29 Raisa Edwards R.N. 20:08/20/2016 Bupivacaine-Epinephrine (Bupivacaine-Epinephrine) Injection Injectable 0.5 % given. Allergies verified and confirmed 5 rights. (At bedside for Dr Gregory). --20:29 Raisa Edwards R.N. 20:30 08/20/2016 Motrin PO Tablets 600 mg given. Allergies verified and confirmed 5 rights. --20:30 Raisa Edwards R.N. 20:30 08/20/2016 Penicillin V Potassium PO Tablets 500 mg given. Allergies verified and confirmed 5 rights. --20:30 Raisa Edwards R.N. DISPOSITION / DISCHARGE Departure time: 2114. --22:28 Victor Hugo Dowd R.N. 21:10 08/20/16. BP: 118/83. HR: 81. RR: 16. O2 saturation: 100% on room air. Temp: 98.7 F (oral). Pain level now: 06/26. --22:32 Victor Hugo Dowd R.N. 21:15. Condition at departure: improved. No learning barriers present. Discharge instructions provided and reviewed with the patient. Reviewed medication(s) (prescription given to pt). Treatments reviewed. Reviewed referral to a dentist for followup (pt states that she has her own dentist). Patient verbalized understanding. Written instructions provided in Tristanian. The patient was discharged by the physician. She was discharged home and unaccompanied at time of discharge. She left the Emergency Department ambulatory and via private vehicle. Patient driving. --22:40 Victor Hugo Dowd R.N. Locked/Released at 08/20/2016 22:44 by Victor Hugo Dowd R.N.
--- NOTE | 2016-08-20 20:43 | ED CLINICAL REPORT ---
Clinical Report - Physicians/Mid Levels [facility] [address] [place] [address] 08/20/2016 20:12 Patient: TERRA DIAL Time Seen: 2014; initial patient contact. Arrived- By private vehicle. Historian- patient. HISTORY OF PRESENT ILLNESS Chief Complaint: DENTAL PAIN. This started past 1 - 2 days and is still present and worsening. It was gradual in onset and has been constant but is not gone now. Pain described as moderate. The patient has had toothache. She has had mild swelling of the face (left). (no fever/chills). Similar symptoms previously: None. Recent medical care: Not recently seen/assessed. REVIEW OF SYSTEMS No fever, cough, difficulty breathing, chest pain or joint pain. All systems otherwise negative, except as recorded above. PAST HISTORY See nurses notes. Additional Surgeries: no known surgeries. Medications: None. Allergies: Sulfa Antibiotics. SOCIAL HISTORY Never smoker. No alcohol use or drug use. No recent travel. Is a local resident. ADDITIONAL NOTES The nursing notes have been reviewed. PHYSICAL EXAM Vital Signs: 08/20/2016 20:20 BP: 137/90. HR: 83. RR: 18. O2 saturation: 100%. Temp: 98.4 F. Pain level now: 7/10. Blood pressure normal. Oxygen saturation normal. Appearance: Alert. No acute distress. (non-toxic). Head: Normal external inspection. Eyes: Pupils equal, round and reactive to light. Conjunctivae and eyelids normal. ENT: Severe, extensive dental decay. Ears normal. Nose normal. Pharynx normal. Lips normal. Gums normal. No trismus present. Uvula midline. (no signs of ANUG or ludwigs). Neck: Trachea midline. No adenopathy. CVS: Normal heart rate and rhythm. Heart sounds normal. Pulses normal. Respiratory: No respiratory distress. Breath sounds normal. Chest nontender. Abdomen: Soft and nontender. No organomegaly. Skin: Normal skin color. No rash. Normal skin turgor. PROGRESS AND PROCEDURES Infraorbital Nerve Block: Procedure performed on the left side. Intraoral approach utilized. Landmarks were identified. Topical anesthetic applied. Total volume of 4 mL 1% Lidocaine and 0.5% Marcaine infiltrated using a 27-gauge needle. Patient cooperative during procedure. No complications encountered. Excellent anesthesia achieved. (1:1 of meds. patient tolerated well.). Course of Care: The patient is a pleasant 31 yo female presenting for evaluation of dental pain. Patient has been evaluated for retropharyngeal abscess, Ludwigs angina, acute necrotizing ulcerative gingivitis, and peritonsillar abscess. The exam findings are not consistent with any of these etiologies. Evidence for dental pain noted on examination. No concern for airway compromise at this time. Patient appears nontoxic. Vital signs are otherwise unremarkable. Do not feel patient is septic at this time. Patient be managed conservatively at this time with antibiotics and nonsteroidal anti-inflammatory medications as tolerated. Patient be instructed to avoid nonsteroidal anti-inflammatory medications if theyre allergic or have intolerances. Did not feel patient needs to be admitted to the hospital or require further emergency department workup/evaluation. Encouraged patient to follow up with the dentist as soon as possible ideally within the next 2 or 3 days. Dental block discussed. Reviewed risks and benefits of the procedure. patient agreeable. Patient has been reevaluated. No evidence of airway compromise. Patient continues to be nontoxic and in no acute distress. I discussed the patient workup, diagnosis, home care, follow-up, and return precautions. All questions answered. The patient expressed understanding of these instructions and was agreeable to them. Disposition: Discharged. Condition: good. CLINICAL IMPRESSION Blood pressure normal. Oxygen saturation normal. Dental caries (extensive decay) (acute). left facial pain, acute. INSTRUCTIONS Warnings: GENERAL WARNINGS: Return or contact your physician immediately if your condition worsens or changes unexpectedly, if not improving as expected, or if other problems arise. Specifically return if pain, vomiting, bleeding, breathing difficulty or fever. Your Current Medications: CONTINUE TAKING THE FOLLOWING MEDICATIONS: None*. Prescription Medications: Penicillin V 500 mg: take 1 tab orally every 12 hours for 10 days. Dispense twenty (20). No refills. (disp 20 tabs) Percocet 5 mg/325 mg: take 1 tablet orally every 6 hours as needed for pain. Dispense twelve (12). No refill. Substitution is permissible. OTC Medications: Motrin (available over the counter): take according to label instructions. Follow-up: Return to the emergency department as needed. Follow up with a specialist Dentist in 2 - 3 days. Reason for referral: recheck today's concerns. Summary of care provided to patient via paper. Screening today revealed the patient's blood pressure to be in the normal range. The patient should follow up with a primary care provider for blood pressure management. Understanding of the discharge instructions verbalized by patient. (Electronically signed by Sam Gregory Dr. 08/22/2016 8:38)
--- NOTE | 2016-08-20 20:43 | ED ORDER SUMMARY ---
..... Patient: TERRA DIAL OrderSheet [facility] VisitID: [id number] [place] [address] 31y, F Registration Date/Time: 08/20/2016 ORDER SHEET Weight: 55.7 kg Allergies: Sulfa Antibiotics GENERAL ORDERS: MEDICATION ORDERS: Lidocaine-Epinephrine Injection 1% (NOW, place at bedside) (20:08/20/2016 Vinicio Thorpe) (20:29 Freya R.N.) Bupivacaine-Epinephrine Injection 0.5 % (soln) (NOW) (20:08/20/2016 Vinicio Thorpe) (20:29 Freya R.N.) Penicillin V Potassium PO 500 mg (NOW) (20:08/20/2016 Vinicio Thorpe) (20:30 Freya R.N.) Motrin PO 600 mg (NOW) (20:08/20/2016 Vinicio Thorpe) (20:30 Freya R.N.) IV FLUIDS: ORDER SHEET NOTES: [Electronically signed by Victor Hugo Dowd R.N. (22:44 08/20/2016)] [Electronically signed by Sam Gregory Dr. (08:38 08/22/2016)] [Electronically locked/signed by Victor Hugo Dowd R.N. (22:44 08/20/2016)]
--- NOTE | 2016-08-20 20:43 | ED ORDER SUMMARY ---
..... Patient: TERRA DIAL OrderSheet [facility] VisitID: [id number] [place] [address] 31y, F Registration Date/Time: 08/20/2016 ORDER SHEET Weight: 55.7 kg Allergies: Sulfa Antibiotics GENERAL ORDERS: MEDICATION ORDERS: Lidocaine-Epinephrine Injection 1% (NOW, place at bedside) (20:08/20/2016 Vinicio Thorpe) (20:29 Freya R.N.) Bupivacaine-Epinephrine Injection 0.5 % (soln) (NOW) (20:08/20/2016 Vinicio Thorpe) (20:29 Freya R.N.) Penicillin V Potassium PO 500 mg (NOW) (20:08/20/2016 Vinicio Thorpe) (20:30 Freya R.N.) Motrin PO 600 mg (NOW) (20:08/20/2016 Vinicio Thorpe) (20:30 Freya R.N.) IV FLUIDS: ORDER SHEET NOTES: [Electronically signed by Victor Hugo Dowd R.N. (22:44 08/20/2016)] [Electronically signed by Sam Gregory Dr. (08:38 08/22/2016)] [Electronically locked/signed by Victor Hugo Dowd R.N. (22:44 08/20/2016)]
--- NOTE | 2016-08-22 08:38 | ED MED RECONCILIATION SUMMARY ---
Patient: TERRA DIAL Medication Reconciliation Report [facility] VisitID: [id number] [place] [address] 31y, F Registration Date/Time: 08/20/2016 Weight: 55.7 kg Height/Length: 62 in. BMI: 22.5 ALLERGIES: Sulfa Antibiotics The patient's Home Medications are listed below: NONE. The source(s) of the original Home Medication information: Not obtained. The following Medications were given to the patient in the Emergency Department: Lidocaine-Epinephrine [Injection] Injection 1 %, administered: 08/20/2016 8:29:00 PM Bupivacaine-Epinephrine [Injection] Injection 0.5 %, administered: 08/20/2016 8:29:00 PM Motrin [PO] PO 600 mg, administered: 08/20/2016 8:30:00 PM Penicillin V Potassium [PO] PO 500 mg, administered: 08/20/2016 8:30:00 PM The following Medications were prescribed to the patient: Motrin (available over the counter): take according to label instructions. -- Sam Gregory Dr. Penicillin V 500 mg: take 1 tab orally every 12 hours for 10 days. Dispense twenty (20). No refills.(disp 20 tabs) -- Sam Gregory Dr. Percocet 5 mg/325 mg: take 1 tablet orally every 6 hours as needed for pain. Dispense twelve (12). No refill. Substitution is permissible. -- Sam Gregory Dr.
--- NOTE | 2016-08-22 08:38 | ED MAR SUMMARY ---
..... Medication Administration Record [facility] [address] [place] [address] Patient: TERRA DIAL Visit ID: [id number] 31y, F Weight: 55.7 kg Height/Length: 62 in BMI: 22.5 ALLERGIES: Sulfa Antibiotics Given 20:08/20/2016 Raisa Edwards R.N. Medication Administered: LIDOCAINE-EPINEPHRINE [INJECTION] (LIDOCAINE-EPINEPHRINE), Dose: 1 % Injectable Injection. Medication Ordered: Lidocaine-Epinephrine Injection 1% (NOW, place at bedside). Given 20:08/20/2016 Raisa Edwards R.N. Medication Administered: BUPIVACAINE-EPINEPHRINE [INJECTION] (BUPIVACAINE-EPINEPHRINE), Dose: 0.5 % Injectable Injection. Medication Ordered: Bupivacaine-Epinephrine Injection 0.5 % (soln) (NOW). Given 20:08/20/2016 Raisa Edwards R.N. Medication Administered: PENICILLIN V POTASSIUM [PO], Dose: 500 mg Tablets PO. Medication Ordered: Penicillin V Potassium PO 500 mg (NOW). Given :08/20/2016 Raisa Edwards R.N. Medication Administered: MOTRIN [PO], Dose: 600 mg Tablets PO. Medication Ordered: Motrin PO 600 mg (NOW).
--- NOTE | 2016-08-22 08:38 | ED DISCHARGE INSTRUCTIONS ---
Patient: TERRA DIAL General Instructions [facility] VisitID: [id number] [place] [address] 31y, F Registration Date/Time: 08/20/2016 Blood pressure normal. Oxygen saturation normal. Dental caries (extensive decay) (acute). left facial pain, acute. INSTRUCTIONS Warnings: GENERAL WARNINGS: Return or contact your physician immediately if your condition worsens or changes unexpectedly, if not improving as expected, or if other problems arise. Specifically return if pain, vomiting, bleeding, breathing difficulty or fever. Your Current Medications: CONTINUE TAKING THE FOLLOWING MEDICATIONS: None*. Prescription Medications: Penicillin V 500 mg: take 1 tab orally every 12 hours for 10 days. Dispense twenty (20). No refills. (disp 20 tabs) Percocet 5 mg/325 mg: take 1 tablet orally every 6 hours as needed for pain. Dispense twelve (12). No refill. Substitution is permissible. OTC Medications: Motrin (available over the counter): take according to label instructions. Follow-up: Return to the emergency department as needed. Follow up with a specialist Dentist in 2 - 3 days. Reason for referral: recheck today's concerns. Summary of care provided to patient via paper. Screening today revealed the patient's blood pressure to be in the normal range. The patient should follow up with a primary care provider for blood pressure management. Understanding of the discharge instructions verbalized by patient. ADDITIONAL INFORMATION Dental Cavity A dental cavity is a pit or crater in the enamel surface of the tooth. This exposes the sensitive inner layer of the tooth and causes pain. If untreated, the cavity will get bigger and may cause an infection or abscess in the root of the tooth. An infection in the tooth is a much more serious problem and may require a root canal or removal of the entire tooth. The tooth pain may be made worse by drinking hot or cold fluids. It may spread from the tooth to the ear or jaw on the same side. Home Care: Avoid hot and cold foods, and liquids since your tooth may be sensitive to temperature changes. If your tooth is chipped or cracked, or if there is a large open cavity, apply OIL OF CLOVES (available [id number] in drug stores) directly to the tooth to reduce pain. Some pharmacies carry an [id number]-[id number] "toothache kit." This contains oil of cloves and a paste, which can be applied over the exposed tooth to decrease sensitivity. An ice pack on your jaw over the sore area may help to reduce pain. You may use acetaminophen (Tylenol) or ibuprofen (Motrin, Advil) to control pain, unless another pain medicine was prescribed. [ NOTE: If you have liver disease or ever had a stomach ulcer, talk with your doctor before using these medicines.] If you have signs of an infection, an antibiotic will be given. Take it as directed. Follow-Up with your dentist as directed. Although your pain may go away with the treatment given, only a dentist can fully evaluate and treat this problem to prevent further tooth damage. Get Prompt Medical Attention if any of the following occur: Redness or swelling of the face Pain worsens or spreads to the neck Fever over 100.5 F (38C) Unusual drowsiness; headache or stiff neck; weakness or fainting Pus drains from the tooth or gum Difficulty swallowing or breathing Penicillin V Potassium Oral tablet What is this medicine? PENICILLIN V (pen i SILL in V) is a penicillin antibiotic. It is used to treat certain kinds of bacterial infections. It will not work for colds, flu, or other viral infections. How should I use this medicine? Take this medicine by mouth with a full glass of water. Follow the directions on the prescription label. Take your medicine at regular intervals. Do not take your medicine more often than directed. Take all of your medicine as directed even if you think your are better. Do not skip doses or stop your medicine early. Talk to your rfid technician regarding the use of this medicine in children. While this drug may be prescribed for selected conditions, precautions do apply. What side effects may I notice from receiving this medicine? Side effects that you should report to your doctor or health lawn care technician as soon as possible: allergic reactions like skin rash or hives, swelling of the face, lips, or tongue breathing problems fever new symptoms of infection redness, blistering, peeling or loosening of the skin, including inside the mouth unusually weak or tired Side effects that usually do not require medical attention (report to your doctor or health lawn care technician if they continue or are bothersome): diarrhea headache nausea, vomiting sore mouth or tongue stomach upset What may interact with this medicine? control pills methotrexate other antibiotics probenecid some vaccines What if I miss a dose? If you miss a dose, take it as soon as you can. If it is almost time for your next dose, take only that dose. Do not take double or extra doses. Where should I keep my medicine? Keep out of the reach of children. Store at room temperature between 15 and 30 degrees C (59 and 86 degrees F). Keep container tightly closed. Throw away any unused medicine after the expiration date. What should I tell my health care provider before I take this medicine? They need to know if you have any of these conditions: asthma bowel disease, like colitis eczema kidney disease an unusual or allergic reaction to penicillin, cephalosporins, other antibiotics or medicines, foods, tartrazine or other dyes, or preservatives or trying to get breast-feeding What should I watch for while using this medicine? Tell your doctor or health lawn care technician if your symptoms do not improve. Do not treat diarrhea with over the counter products. Contact your doctor if you have diarrhea that lasts more than 2 days or if it is severe and watery. If you have diabetes, you may get a false-positive result for sugar in your urine. Check with your doctor or health lawn care technician. control pills may not work properly while you are taking this medicine. Talk to your doctor about using an extra method of control. Oxycodone Hydrochloride, Acetaminophen Oral tablet What is this medicine? ACETAMINOPHEN; OXYCODONE (a set a VALDO aurea fen; ox i KOE done) is a pain reliever. It is used to treat mild to moderate pain. How should I use this medicine? Take this medicine by mouth with a full glass of water. Follow the directions on the prescription label. Take your medicine at regular intervals. Do not take your medicine more often than directed. Talk to your rfid technician regarding the use of this medicine in children. Special care may be needed. Patients over 65 years old may have a stronger reaction and need a smaller dose. What side effects may I notice from receiving this medicine? Side effects that you should report to your doctor or health lawn care technician as soon as possible: allergic reactions like skin rash, itching or hives, swelling of the face, lips, or tongue breathing difficulties, wheezing confusion light headedness or fainting spells severe stomach pain yellowing of the skin or the whites of the eyes Side effects that usually do not require medical attention (report to your doctor or health lawn care technician if they continue or are bothersome): dizziness drowsiness nausea vomiting What may interact with this medicine? alcohol antihistamines barbiturates like amobarbital, butalbital, butabarbital, methohexital, pentobarbital, phenobarbital, thiopental, and secobarbital benztropine drugs for bladder problems like solifenacin, trospium, oxybutynin, tolterodine, hyoscyamine, and methscopolamine drugs for breathing problems like ipratropium and tiotropium drugs for certain stomach or intestine problems like propantheline, homatropine methylbromide, glycopyrrolate, atropine, belladonna, and dicyclomine general anesthetics like etomidate, ketamine, nitrous oxide, propofol, desflurane, enflurane, halothane, isoflurane, and sevoflurane medicines for depression, anxiety, or psychotic disturbances medicines for sleep muscle relaxants naltrexone narcotic medicines (opiates) for pain phenothiazines like perphenazine, thioridazine, chlorpromazine, mesoridazine, fluphenazine, prochlorperazine, promazine, and trifluoperazine scopolamine tramadol trihexyphenidyl What if I miss a dose? If you miss a dose, take it as soon as you can. If it is almost time for your next dose, take only that dose. Do not take double or extra doses. Where should I keep my medicine? Keep out of the reach of children. This medicine can be abused. Keep your medicine in a safe place to protect it from theft. Do not share this medicine with anyone. Selling or giving away this medicine is dangerous and against the law. Store at room temperature between 20 and 25 degrees C (68 and 77 degrees F). Keep container tightly closed. Protect from light. This medicine may cause accidental overdose and if it is taken by other adults, children, or pets. Flush any unused medicine down the toilet to reduce the chance of harm. Do not use the medicine after the expiration date. What should I tell my health care provider before I take this medicine? They need to know if you have any of these conditions: brain tumor Crohn's disease, inflammatory bowel disease, or ulcerative colitis drink more than 3 alcohol containing drinks per day drug abuse or addiction head injury heart or circulation problems kidney disease or problems going to the bathroom liver disease lung disease, asthma, or breathing problems an unusual or allergic reaction to acetaminophen, oxycodone, other opioid analgesics, other medicines, foods, dyes, or preservatives or trying to get breast-feeding What should I watch for while using this medicine? Tell your doctor or health lawn care technician if your pain does not go away, if it gets worse, or if you have new or a different type of pain. You may develop tolerance to the medicine. Tolerance means that you will need a higher dose of the medication for pain relief. Tolerance is normal and is expected if you take this medicine for a long time. Do not suddenly stop taking your medicine because you may develop a severe reaction. Your body becomes used to the medicine. This does NOT mean you are addicted. Addiction is a behavior related to getting and using a drug for a non-medical reason. If you have pain, you have a medical reason to take pain medicine. Your doctor will tell you how much medicine to take. If your doctor wants you to stop the medicine, the dose will be slowly lowered over time to avoid any side effects. You may get drowsy or dizzy. Do not drive, use machinery, or do anything that needs mental alertness until you know how this medicine affects you. Do not stand or sit up quickly, especially if you are an older patient. This reduces the risk of dizzy or fainting spells. Alcohol may interfere with the effect of this medicine. Avoid alcoholic drinks. There are different types of narcotic medicines (opiates) for pain. If you take more than one type at the same time, you may have more side effects. Give your health care provider a list of all medicines you use. Your doctor will tell you how much medicine to take. Do not take more medicine than directed. Call emergency for help if you have problems breathing. The medicine will cause constipation. Try to have a bowel movement at least every 2 to 3 days. If you do not have a bowel movement for 3 days, call your doctor or health lawn care technician. Do not take Tylenol (acetaminophen) or medicines that have acetaminophen with this medicine. Too much acetaminophen can be very dangerous. Many nonprescription medicines contain acetaminophen. Always read the labels carefully to avoid taking more acetaminophen. You have been given the following additional information: Dental Cavity Penicillin V Potassium Oral tablet Oxycodone Hydrochloride, Acetaminophen Oral tablet (Electronically signed by Sam Gregory Dr. 08/22/2016 8:38)
--- NOTE | 2016-08-22 08:38 | ED DISCHARGE INSTRUCTIONS ---
Patient: TERRA DIAL General Instructions [facility] VisitID: [id number] [place] [address] 31y, F Registration Date/Time: 08/20/2016 Blood pressure normal. Oxygen saturation normal. Dental caries (extensive decay) (acute). left facial pain, acute. INSTRUCTIONS Warnings: GENERAL WARNINGS: Return or contact your physician immediately if your condition worsens or changes unexpectedly, if not improving as expected, or if other problems arise. Specifically return if pain, vomiting, bleeding, breathing difficulty or fever. Your Current Medications: CONTINUE TAKING THE FOLLOWING MEDICATIONS: None*. Prescription Medications: Penicillin V 500 mg: take 1 tab orally every 12 hours for 10 days. Dispense twenty (20). No refills. (disp 20 tabs) Percocet 5 mg/325 mg: take 1 tablet orally every 6 hours as needed for pain. Dispense twelve (12). No refill. Substitution is permissible. OTC Medications: Motrin (available over the counter): take according to label instructions. Follow-up: Return to the emergency department as needed. Follow up with a specialist Dentist in 2 - 3 days. Reason for referral: recheck today's concerns. Summary of care provided to patient via paper. Screening today revealed the patient's blood pressure to be in the normal range. The patient should follow up with a primary care provider for blood pressure management. Understanding of the discharge instructions verbalized by patient. ADDITIONAL INFORMATION Dental Cavity A dental cavity is a pit or crater in the enamel surface of the tooth. This exposes the sensitive inner layer of the tooth and causes pain. If untreated, the cavity will get bigger and may cause an infection or abscess in the root of the tooth. An infection in the tooth is a much more serious problem and may require a root canal or removal of the entire tooth. The tooth pain may be made worse by drinking hot or cold fluids. It may spread from the tooth to the ear or jaw on the same side. Home Care: Avoid hot and cold foods, and liquids since your tooth may be sensitive to temperature changes. If your tooth is chipped or cracked, or if there is a large open cavity, apply OIL OF CLOVES (available [id number] in drug stores) directly to the tooth to reduce pain. Some pharmacies carry an [id number] "toothache kit." This contains oil of cloves and a paste, which can be applied over the exposed tooth to decrease sensitivity. An ice pack on your jaw over the sore area may help to reduce pain. You may use acetaminophen (Tylenol) or ibuprofen (Motrin, Advil) to control pain, unless another pain medicine was prescribed. [ NOTE: If you have liver disease or ever had a stomach ulcer, talk with your doctor before using these medicines.] If you have signs of an infection, an antibiotic will be given. Take it as directed. Follow-Up with your dentist as directed. Although your pain may go away with the treatment given, only a dentist can fully evaluate and treat this problem to prevent further tooth damage. Get Prompt Medical Attention if any of the following occur: Redness or swelling of the face Pain worsens or spreads to the neck Fever over 100.5 F (38C) Unusual drowsiness; headache or stiff neck; weakness or fainting Pus drains from the tooth or gum Difficulty swallowing or breathing Penicillin V Potassium Oral tablet What is this medicine? PENICILLIN V (pen i SILL in V) is a penicillin antibiotic. It is used to treat certain kinds of bacterial infections. It will not work for colds, flu, or other viral infections. How should I use this medicine? Take this medicine by mouth with a full glass of water. Follow the directions on the prescription label. Take your medicine at regular intervals. Do not take your medicine more often than directed. Take all of your medicine as directed even if you think your are better. Do not skip doses or stop your medicine early. Talk to your sugar reprocess operator head regarding the use of this medicine in children. While this drug may be prescribed for selected conditions, precautions do apply. What side effects may I notice from receiving this medicine? Side effects that you should report to your doctor or health career services manager as soon as possible: allergic reactions like skin rash or hives, swelling of the face, lips, or tongue breathing problems fever new symptoms of infection redness, blistering, peeling or loosening of the skin, including inside the mouth unusually weak or tired Side effects that usually do not require medical attention (report to your doctor or health career services manager if they continue or are bothersome): diarrhea headache nausea, vomiting sore mouth or tongue stomach upset What may interact with this medicine? control pills methotrexate other antibiotics probenecid some vaccines What if I miss a dose? If you miss a dose, take it as soon as you can. If it is almost time for your next dose, take only that dose. Do not take double or extra doses. Where should I keep my medicine? Keep out of the reach of children. Store at room temperature between 15 and 30 degrees C (59 and 86 degrees F). Keep container tightly closed. Throw away any unused medicine after the expiration date. What should I tell my health care provider before I take this medicine? They need to know if you have any of these conditions: asthma bowel disease, like colitis eczema kidney disease an unusual or allergic reaction to penicillin, cephalosporins, other antibiotics or medicines, foods, tartrazine or other dyes, or preservatives or trying to get breast-feeding What should I watch for while using this medicine? Tell your doctor or health career services manager if your symptoms do not improve. Do not treat diarrhea with over the counter products. Contact your doctor if you have diarrhea that lasts more than 2 days or if it is severe and watery. If you have diabetes, you may get a false-positive result for sugar in your urine. Check with your doctor or health career services manager. control pills may not work properly while you are taking this medicine. Talk to your doctor about using an extra method of control. Oxycodone Hydrochloride, Acetaminophen Oral tablet What is this medicine? ACETAMINOPHEN; OXYCODONE (a set a VALDO aurea fen; ox i KOE done) is a pain reliever. It is used to treat mild to moderate pain. How should I use this medicine? Take this medicine by mouth with a full glass of water. Follow the directions on the prescription label. Take your medicine at regular intervals. Do not take your medicine more often than directed. Talk to your sugar reprocess operator head regarding the use of this medicine in children. Special care may be needed. Patients over 65 years old may have a stronger reaction and need a smaller dose. What side effects may I notice from receiving this medicine? Side effects that you should report to your doctor or health career services manager as soon as possible: allergic reactions like skin rash, itching or hives, swelling of the face, lips, or tongue breathing difficulties, wheezing confusion light headedness or fainting spells severe stomach pain yellowing of the skin or the whites of the eyes Side effects that usually do not require medical attention (report to your doctor or health career services manager if they continue or are bothersome): dizziness drowsiness nausea vomiting What may interact with this medicine? alcohol antihistamines barbiturates like amobarbital, butalbital, butabarbital, methohexital, pentobarbital, phenobarbital, thiopental, and secobarbital benztropine drugs for bladder problems like solifenacin, trospium, oxybutynin, tolterodine, hyoscyamine, and methscopolamine drugs for breathing problems like ipratropium and tiotropium drugs for certain stomach or intestine problems like propantheline, homatropine methylbromide, glycopyrrolate, atropine, belladonna, and dicyclomine general anesthetics like etomidate, ketamine, nitrous oxide, propofol, desflurane, enflurane, halothane, isoflurane, and sevoflurane medicines for depression, anxiety, or psychotic disturbances medicines for sleep muscle relaxants naltrexone narcotic medicines (opiates) for pain phenothiazines like perphenazine, thioridazine, chlorpromazine, mesoridazine, fluphenazine, prochlorperazine, promazine, and trifluoperazine scopolamine tramadol trihexyphenidyl What if I miss a dose? If you miss a dose, take it as soon as you can. If it is almost time for your next dose, take only that dose. Do not take double or extra doses. Where should I keep my medicine? Keep out of the reach of children. This medicine can be abused. Keep your medicine in a safe place to protect it from theft. Do not share this medicine with anyone. Selling or giving away this medicine is dangerous and against the law. Store at room temperature between 20 and 25 degrees C (68 and 77 degrees F). Keep container tightly closed. Protect from light. This medicine may cause accidental overdose and if it is taken by other adults, children, or pets. Flush any unused medicine down the toilet to reduce the chance of harm. Do not use the medicine after the expiration date. What should I tell my health care provider before I take this medicine? They need to know if you have any of these conditions: brain tumor Crohn's disease, inflammatory bowel disease, or ulcerative colitis drink more than 3 alcohol containing drinks per day drug abuse or addiction head injury heart or circulation problems kidney disease or problems going to the bathroom liver disease lung disease, asthma, or breathing problems an unusual or allergic reaction to acetaminophen, oxycodone, other opioid analgesics, other medicines, foods, dyes, or preservatives or trying to get breast-feeding What should I watch for while using this medicine? Tell your doctor or health career services manager if your pain does not go away, if it gets worse, or if you have new or a different type of pain. You may develop tolerance to the medicine. Tolerance means that you will need a higher dose of the medication for pain relief. Tolerance is normal and is expected if you take this medicine for a long time. Do not suddenly stop taking your medicine because you may develop a severe reaction. Your body becomes used to the medicine. This does NOT mean you are addicted. Addiction is a behavior related to getting and using a drug for a non-medical reason. If you have pain, you have a medical reason to take pain medicine. Your doctor will tell you how much medicine to take. If your doctor wants you to stop the medicine, the dose will be slowly lowered over time to avoid any side effects. You may get drowsy or dizzy. Do not drive, use machinery, or do anything that needs mental alertness until you know how this medicine affects you. Do not stand or sit up quickly, especially if you are an older patient. This reduces the risk of dizzy or fainting spells. Alcohol may interfere with the effect of this medicine. Avoid alcoholic drinks. There are different types of narcotic medicines (opiates) for pain. If you take more than one type at the same time, you may have more side effects. Give your health care provider a list of all medicines you use. Your doctor will tell you how much medicine to take. Do not take more medicine than directed. Call emergency for help if you have problems breathing. The medicine will cause constipation. Try to have a bowel movement at least every 2 to 3 days. If you do not have a bowel movement for 3 days, call your doctor or health career services manager. Do not take Tylenol (acetaminophen) or medicines that have acetaminophen with this medicine. Too much acetaminophen can be very dangerous. Many nonprescription medicines contain acetaminophen. Always read the labels carefully to avoid taking more acetaminophen. You have been given the following additional information: Dental Cavity Penicillin V Potassium Oral tablet Oxycodone Hydrochloride, Acetaminophen Oral tablet (Electronically signed by Sam Gregory Dr. 08/22/2016 8:38)
--- NOTE | 2016-08-22 08:38 | ED MAR SUMMARY ---
..... Medication Administration Record [facility] [address] [place] [address] Patient: TERRA DIAL Visit ID: [id number] 31y, F Weight: 55.7 kg Height/Length: 62 in BMI: 22.5 ALLERGIES: Sulfa Antibiotics Given 20:08/20/2016 Raisa Edwards R.N. Medication Administered: LIDOCAINE-EPINEPHRINE [INJECTION] (LIDOCAINE-EPINEPHRINE), Dose: 1 % Injectable Injection. Medication Ordered: Lidocaine-Epinephrine Injection 1% (NOW, place at bedside). Given 20:08/20/2016 Raisa Edwards R.N. Medication Administered: BUPIVACAINE-EPINEPHRINE [INJECTION] (BUPIVACAINE-EPINEPHRINE), Dose: 0.5 % Injectable Injection. Medication Ordered: Bupivacaine-Epinephrine Injection 0.5 % (soln) (NOW). Given 20:08/20/2016 Raisa Edwards R.N. Medication Administered: PENICILLIN V POTASSIUM [PO], Dose: 500 mg Tablets PO. Medication Ordered: Penicillin V Potassium PO 500 mg (NOW). Given :08/20/2016 Raisa Edwards R.N. Medication Administered: MOTRIN [PO], Dose: 600 mg Tablets PO. Medication Ordered: Motrin PO 600 mg (NOW).
--- NOTE | 2016-08-22 08:38 | ED MED RECONCILIATION SUMMARY ---
Patient: TERRA DIAL Medication Reconciliation Report [facility] VisitID: [id number] [place] [address] 31y, F Registration Date/Time: 08/20/2016 Weight: 55.7 kg Height/Length: 62 in. BMI: 22.5 ALLERGIES: Sulfa Antibiotics The patient's Home Medications are listed below: NONE. The source(s) of the original Home Medication information: Not obtained. The following Medications were given to the patient in the Emergency Department: Lidocaine-Epinephrine [Injection] Injection 1 %, administered: 08/20/2016 8:29:00 PM Bupivacaine-Epinephrine [Injection] Injection 0.5 %, administered: 08/20/2016 8:29:00 PM Motrin [PO] PO 600 mg, administered: 08/20/2016 8:30:00 PM Penicillin V Potassium [PO] PO 500 mg, administered: 08/20/2016 8:30:00 PM The following Medications were prescribed to the patient: Motrin (available over the counter): take according to label instructions. -- Sam Gregory Dr. Penicillin V 500 mg: take 1 tab orally every 12 hours for 10 days. Dispense twenty (20). No refills.(disp 20 tabs) -- Sam Gregory Dr. Percocet 5 mg/325 mg: take 1 tablet orally every 6 hours as needed for pain. Dispense twelve (12). No refill. Substitution is permissible. -- Sam Gregory Dr.
== END 2016-08-20 21:15 | disposition home or self-care (01) ==
LOC: ED SRH 20:10
DX: K02.9 Dental caries, unspecified (principal); G50.1 Atypical facial pain; Z88.2 Allergy status to sulfonamides